=== PATIENT | female | born 1995 | race Caucasian/White ===

== ENCOUNTER 2023-12-03 06:27 | Outpatient (REF) | payer OTHER, SELFPAY ==
--- NOTE | ~2023-12-03 | US_ITS ---
EXAMINATION: US PELVIS CLINICAL INFORMATION: Pelvic pain. Irregular menses. COMPARISON: None available. TECHNIQUE: Ultrasound of the pelvis is performed using both transabdominal and transvaginal transducers along with Doppler. Transvaginal imaging is performed due to inadequate visualization transabdominally. FINDINGS: Uterus: The uterus is anteverted. The uterus measures 8.5 x 3.6 x 4.4 cm. Uterine echotexture is heterogeneous. The endometrial stripe measures 5 mm in thickness. Intrauterine device is in satisfactory position within the endometrium. Adnexa: The right ovary measures 3.5 x 2.2 x 2.9 cm. The left ovary measures 3.7 x 2.6 x 2.0 cm. Complex cyst in the left ovary measures 1.3 x 2.2 x 1.3 cm. No internal color Doppler flow. No further follow-up imaging is recommended. Small free fluid in the cul-de-sac. US/US pelvic and transvaginal IMPRESSION: No acute abnormality. Electronically signed by: Nando Ladd MD 12/04/2023 11:46 AM EDT
== END 2023-12-03 06:28 | disposition home or self-care (01) ==
LOC: HO.UMASIMG 06:27
PROVIDERS: Visit Provider Pediatrics
DX: R10.9 Unspecified abdominal pain (principal); R10.2 Pelvic and perineal pain; R11.2 Nausea with vomiting, unspecified
CPT/HCPCS: 76830; 76856